=== PATIENT | female | born 1965 | race Caucasian/White ===

== ENCOUNTER 2019-08-30 06:49 | Inpatient (IN) | payer OTHER, MEDICAID ==
[~2019-08-30] VITALS: Ht 170.2 cm; Wt 72.7 kg
[2019-08-30 07:04] VITALS: Ht 170.2 cm; Wt 72.7 kg
--- NOTE | 2019-08-30 07:33 | NUR ---
PT MEDICATED WITH FENTENYL AND WILL CONTINUE TO MONITOR. TOLERATING MEDICATION AT THIS TIME
--- NOTE | 2019-08-30 07:33 | NUR ---
PT HERE FOR AICD INTERMITTENTLY SHOCKING THE PT STARTED THIS AM. UPON ARRIVAL PT HAD APPROX 10 SHOCKS AND PAIN 10/10 DURING SHOCKS. PT ARRIVES ALERT AND ORIENTED WITH VSS UPON ARRIVAL. PT HAS AFIB AN UNDERLYING RHYTHM WITH RUNS OF VT AND RUNS OF NSR. DR ARIAS PLACED MAGNET AT SIGHT AT THIS TIME
[2019-08-30 07:40] LABS: BASOPHIL % 1.2 % (0-2); PLATELET COUNT 360 x10^3mcL (130-400); RED CELL DISTRIBUTION WIDTH 13.1 % (11.5-14.5)
[2019-08-30 07:51] LABS: CALCIUM 9.1 mg/dL (8.5-10.1); CARBON DIOXIDE 24.9 mmol/L (21-32); CHLORIDE SERUM 106 mmol/L (98-107); CREATININE SERUM 0.9 mg/dL (0.6-1.0); GFR1 > 60 mL/min; GLUCOSE SERUM 116 mg/dL (74-106); POTASSIUM SERUM 3.7 mmol/L (3.5-5.1); SODIUM SERUM 142 mmol/L (136-145)
[2019-08-30 07:56] LABS: ALKALINE PHOSPHATASE 101 U/L (46-116); ALT/SGPT 22 U/L (14-59); AST/SGOT 21 U/L (15-37); BILIRUBIN TOTAL 0.2 mg/dL (0.20-1.00); TOTAL PROTEIN, SERUM 7.4 g/dL (6.4-8.2)
[2019-08-30 07:57] LABS: ALBUMIN 3.1 g/dL (3.4-5.0)
--- NOTE | 2019-08-30 08:28 | NUR ---
PT CLAIMS NO PAIN AT THIS TIME AND VSS. NO DISTRESS. WILL CONTINUE TO MONITOR
--- NOTE | 2019-08-30 08:56 | NUR ---
REPORT GIVEN TO TAM PIERCE RN
--- NOTE | 2019-08-30 09:05 | NUR ---
RECEIVED PT FROM ER WITH DIAGNOSIS OF AICD MALFUNCTION. AICD SHOCKED PT THIS AM. EDEN PTS RN AT [facility] [place], [facility] WAS TRYING TO GET PACEMAKER REPLACED. SHE THINKS 3-5 LINES ARE FRACTURED. ALLERGIES TO MORPHINE AND DILAUDID. 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 PT FELL AT 15 AND INJURED LEFT HIP. USES WHEELCHAIR. HX SCHIZO, AFIB? ALERT AND ORIENTED TO SELF,OTHERS AND PLACE. EDEN RN [phone]. PHOTO TAKEN OF SEAN ON LOWER LIP. ORIENTED TO CALL LIGHT. ON 02 2L NC.
[2019-08-30 10:14] VITALS: BP 148/65
[2019-08-30 13:41] VITALS: BP 109/65
[2019-08-30] MEDS ORDERED: MULTI-VITAMINS1 TAB PO (16:19)
[2019-08-30] MEDS ORDERED: FLUVOXAMINE MA100 MG PO (16:20)
[2019-08-30] MEDS ORDERED: DOCU LIQUI50 MG/5 ML PO (16:22)
[2019-08-30] MEDS ORDERED: GOOD SENSE ASPI81 M3 PO (16:23)
[2019-08-30] MEDS ORDERED: FLECAINIDE ACET50 MG PO (16:24)
[2019-08-30] MEDS ORDERED: CALCIUM500 M1 PO (16:24)
[2019-08-30] MEDS ORDERED: D-20001 TAB PO (16:25)
[2019-08-30] MEDS ORDERED: ZYPREXA2.5 M1 PO (16:26)
[2019-08-30] MEDS ORDERED: OXYBUTYNIN CHLOR5 MG PO (16:27)
[2019-08-30] MEDS ORDERED: MIRALAX17 GM/Dose PO (16:27)
[2019-08-30] MEDS ORDERED: TYLENOL ARTHRITIS (16:28)
[2019-08-30] MEDS ORDERED: TYLENOL ARTHRITIS PO (16:30)
[2019-08-30] MEDS ORDERED: MOM PO (16:32)
[2019-08-30 17:56] VITALS: BP 122/72
--- NOTE | 2019-08-30 18:22 | NUR ---
RE; PACEMAKER [facility] [phone].
--- NOTE | 2019-08-30 18:52 | NUR ---
RESTING COMFORTABLY. VSS, NO C/O PAIN. GOOD APPETITE WITH LUNCH AND DINNER. ORDER FOR AICD INTERROGATION. SECRETARTY FAXED REQUEST TO [facility] FOR ANY PREVIOUS INTEROGATION. [phone]. CALL LIGHT WITHIN REACH.
--- NOTE | 2019-08-30 18:58 | NUR ---
SENT REQUEST OF INFO/ INTERROGATION REPORT RE: PACEMAKER TO [facility]. PHONE [phone]
[2019-08-30 20:40] VITALS: BP 137/80
[2019-08-31 05:36] VITALS: BP 105/62
[2019-08-31 06:43] LABS: BASOPHIL % 0.6 % (0-2); PLATELET COUNT 312 x10^3mcL (130-400); RED CELL DISTRIBUTION WIDTH 13.1 % (11.5-14.5)
[2019-08-31 07:02] LABS: CALCIUM 9.2 mg/dL (8.5-10.1); CARBON DIOXIDE 28.1 mmol/L (21-32); CHLORIDE SERUM 104 mmol/L (98-107); CREATININE SERUM 0.8 mg/dL (0.6-1.0); GFR1 > 60 mL/min; GLUCOSE SERUM 72 mg/dL (74-106); POTASSIUM SERUM 3.9 mmol/L (3.5-5.1); SODIUM SERUM 140 mmol/L (136-145)
[2019-08-31 07:50] VITALS: BP 125/77
--- NOTE | 2019-08-31 07:52 | NUR ---
RECEIVED PATIENT FROM NIGHT NURSE, NO REPORT GIVEN. PATIENT WITH MENTAL DELAY, KNOWS NAME, GENREAL LOCATION, AND APPROX DATE. REPROTING THAT HER PACEMAKER SHOCKED HER ONE TIME. DAY NURSE YESTERDAY ALREADY FAXED INFO REQUEST TO [facility] FOR PACEMAKER INTEROGATION. AWAITING REPLY. PATIENT RESTING AT TIME, NO COMPLAINTS OF PAIN, TELE [address], SHOWING SINUS STACEY. AICD IN PLACE ON LEFT CHEST, REPORTS NO SHOCKS. IV IN LEFT SANDERS, FLUSHING WELL. CALL LIGHT WITHIN PLACE
--- NOTE | 2019-08-31 10:58 | NUR ---
X1 EPISODE OF VOMITING, NO RESIDUAL NAUSEA. NO FURTHER COMPLAINTS CALL LIGHT WITHIN REACH
[2019-08-31 11:41] VITALS: BP 104/77
--- NOTE | 2019-08-31 12:17 | NUR ---
PT PACEMAKER COMPANY IS [employer].
--- NOTE | 2019-08-31 12:36 | NUR ---
INTEROGATED METRONIC PACEMAKER, RECEIVED CALL FROM NASIR BARTON. STATING THAT FAULT IS IN PACEMAKER. FRACTURE IN THE SVC COIL RESULTED IN 21 UNTHERAPUTIC SHOCKS FOR PATIENT. TECH INSTRUCTED TO PLACE A MAGNET ON THE PACEMAKER TO DEACTIVATE IT AND HE WILL COME TO REPORGRAM THE AICD WITHIN THE HOUR. INFORUBY BOSCH NP AND WILL CONTACT DR MICHELLE TO INFORM. CALLED OR TO REQUEST MAGNET TO PLACE ON PATIENT CHEST
--- NOTE | 2019-08-31 14:45 | NUR ---
NASIR FROM [facility] CAME AND ASSESSED AICD, HE SPOKE WITH DR MICHELLE AND INFORMED OF ASSESSMENT. DR MICHELLE AWARE OF NEED FOR REPLACEMENT OF SVC LEAD AND BATTERY CHANGE (DUE TO 21 SHOCKS), PER DR MICHELLE INSTRUCTIONS, NASIR TURNED OFF AICD FUNCTION AND WILL CONTINUE TO MONITOR ON TELE. [employer] WOULD LIKE TO BE CALLED IF PATIENT IS SENT TO SURGERY,
[2019-08-31 16:12] VITALS: BP 118/77
--- NOTE | 2019-08-31 16:45 | NUR ---
P.T. NOTES RECEIVED P.T. EVAL ORDER; HOLD P.T. EVAL, POSSIBLE SURGERY PER CHART; WILL FF UP WHEN ABLE.
--- NOTE | 2019-08-31 17:12 | NUR ---
DR MICHELLE ROUNDED ON PATIENT. UPDATED PATIENT ON PLAN OF CARE. IWLL BE CONTACTING ELCTROPHYSIOLOGIST (EP) IF LEAD CAN BE REPLACED AT [facility] OF IF NEEDING TO BE REPLACED AT DIFFERENT HOSPITAL. PATIENT ACCEPTING OF PLAN
--- NOTE | 2019-08-31 18:47 | NUR ---
PATIENT AWAKE AND ALERT, NO COMPLAINTS. STATING SHE IS "FEELING OKAY" UNDERSTANDING OF PLAN TO REPLACE LEAD IN AICD. ATTEMPTED TO CONTACT FACILITY SUPERVISER, LEANDRO, WITH NO ANSWER AND MAILBOX FULL. PATIENT WANTED FACILITY TO BE UPDATED. WILL ATTEMPT IN AM. CALL LIGHT WITHIN REACH, WILL ENDORSE CARE TO SOLOIST DANCER
[2019-08-31 19:05] VITALS: BP 99/57
--- NOTE | 2019-08-31 19:05 | NUR ---
RECEIVED PT AWAKE ALERT TO NAME AND BIRTHDATE,SLOW TO RESPONSE D/T HX ANOXIC BRAIN INJURY BUT RESPONDS TO ALL QUESTUIONS APPROPRIATELY.DENIES CHESTPAIN AT THIS TIME.BP 99/57 MMHG,HR 70.BEDALARM ON FOR SAFETY AND ABLE TO USE CALL BUTTON NEEDED.WILL CONTINUE TO MONITOR.
--- NOTE | 2019-08-31 23:22 | NUR ---
RECEIVED A CALL FROM THE 2S CHARGE NURSE FOR A REQUEST TO TRANSFER TO [facility] FROM DR MICHELLE. [facility] RHIANNA CALLED. I SPOKE WITH PERSONAL CARE SERVICE PROVIDER MATTEO. FACE SHEET AND H&P AND CONSULT FAXED. AT THIS TIME 2300...NO BEDS WERE AVAILABLE. POSSIBLY A BED MIGHT BE AVAIL IN THE MORNING. [facility] CHARGE NURSE MADE AWARE.
--- NOTE | 2019-09-01 04:56 | NUR ---
PT SLEPT WELL.DENIES CHESTPAIN ALL NIGHT.VOMITED X1 TO LIGHT WATERY VOMITUS AFTER REPOSITIONING.GOOD ORAL CARE PROVIDED.ALL NEEDS MET.WILL CONTINUE TO MONITOR.
[2019-09-01 05:23] VITALS: BP 104/62
--- NOTE | 2019-09-01 06:04 | NUR ---
ABLE TO ESTABLISH AN IV LINE TO LFA# 22.DISCONTINUE IV TO William SANDERS.
[2019-09-01 06:25] LABS: CALCIUM 9.1 mg/dL (8.5-10.1); CARBON DIOXIDE 31.3 mmol/L (21-32); CHLORIDE SERUM 103 mmol/L (98-107); CREATININE SERUM 0.9 mg/dL (0.6-1.0); GFR1 > 60 mL/min; GLUCOSE SERUM 74 mg/dL (74-106); POTASSIUM SERUM 3.9 mmol/L (3.5-5.1); SODIUM SERUM 140 mmol/L (136-145)
--- NOTE | 2019-09-01 07:35 | NUR ---
RECEIVED HAND OFF REPORT FROM NIGHT NURSEGERRY. NO ACUTE CHANGES OVERNIGHT. X1 EPISODE OF VOMITING. NEW IV WAS STARTED TO LEFT FOREARM. PAITENT IS AWAKE AND ALERT AT THIS TIME, ORIENTED TO PERSON, PLACE, AND EVENT. STILL SLIGHTLY CONFUSED DUE TO HX. NMO COMPLAINTS FROM PATIENT. CALL LIGHT WITHIN REACH
[2019-09-01 08:06] LABS: BASOPHIL % 0.3 % (0-2); PLATELET COUNT 342 x10^3mcL (130-400)
--- NOTE | 2019-09-01 08:21 | NUR ---
SPOKE WITH [facility] WITH [facility]. UPDATED ABOUT PATIENT AND ANSWERED QUESTIONS. TRANSFERRED CALL BACK TO HOUSE SUP
[2019-09-01 09:30] VITALS: BP 101/54
--- NOTE | 2019-09-01 10:06 | NUR ---
BRENDA FROM [facility] REQUESTING FAX OF PACEMAKER INTEROGATION. FAX SENT AND RETURN CONFIRMATION IN CHART
--- NOTE | 2019-09-01 10:09 | NUR ---
ADMINSTERED MEDICATION PER MAR. PATIETN REFUSING COLACE SYRUP. EATING BREAKFAST WITHOUT ISSUE. DENIES NAUSEA, CALL LIGHT WITHIN REACH
--- NOTE | 2019-09-01 10:15 | NUR ---
CALLED AND UPDATED LEANDRO OFFICER [employer] FOR [facility]. INSTRUCTED TO CALL PATIENT'S BROTHER, LISSETH. CALLED AND LEFT MESSAGE ATTEMPTING TO UPDATE AND STATUS OF PATIENT.
--- NOTE | 2019-09-01 11:52 | NUR ---
SPOKE WITH LISSETH (BROTHER OF PATIENT) TO INFORM OF PLAN AND ACTIVLY ATTEMPTING TO FIND BED PLACEMENT. BROTHER AWARE.
[2019-09-01 13:02] VITALS: BP 110/76
--- NOTE | 2019-09-01 18:17 | NUR ---
ADMINSITERED MEDICATION PER NOV. NO COMPLAINTS FROM PATIENT NO CHEST PAIN, DR MICHELLE ROUNDED ON PAITENT. NO NEW ORDERS, CONTINUE CURRENT THERAPIES BROTHER LISSETH WAS UPDATED TODAY. NO TRANSFER OF YET. WILL ENDORSE TO [facility]
[2019-09-01 18:38] VITALS: BP 113/68
--- NOTE | 2019-09-01 19:05 | NUR ---
REPORT RECEIVED FROM DAY SHIFT RN. PATIENT WAS SEEN RESTING COMFORTABLY IN BED. NO DISTRESS NOTED. BREATHING EVEN AND UNLABORED ON ROOM AIR. NO SOB OR RESP DISTRESS NOTED. NO C/O PAIN. DENIES CHEST PAIN/PRESSURE. A/OX3. SLOW AND SLURRED SPEECH NOTED. ABLE TO MAKE NEEDS KNOWN. HAD AICD, BUT OFF AT THIS TIME PER MD ORDER. IV TO THE LFA, SALINE LOCK. PATENT AND INTACT. NO REDNESS OR SWELLING NOTED. COMFORT AND SAFETY MEASURES IN PLACE. BED IS LOCKED AND IN THE LOWEST POSITION. SIDE RAILS UP X2. CALL LIGHT IS WITHIN REACH. INSTRUCTED TO CALL FOR ASSISTANCE. WILL CONTINUE TO MONITOR.
--- NOTE | 2019-09-01 20:01 | NUR ---
1545= Sharon from [facility] [place] called & She told me that Dr. Jackson is the accepting physician & She faxed Transfer Back agreement to be sign by Manager Presentation. 1700= Spoke to Kimi, regading transfer back agreement & She advise to call Dr. Torrez if the pt. really needs to be transfer today 1800= Macie Ruiz RN called Dr. Torrez & He agreed to transfer the pt. tomorrow to [facility].
[2019-09-01 20:35] VITALS: BP 142/66
[2019-09-01 20:38] VITALS: BP 92/56
--- NOTE | 2019-09-02 01:37 | NUR ---
RESTING IN BED WITH EYES CLOSED. NO DISTRESS NOTED. BREATHING EVEN AND UNLABORED ON ROOM AIR. NO S/S OF PAIN NOTED. SAFETY MEASURES IN PLACE. CALL LIGHT IS WITHIN REACH. WILL CONTINUE TO MONITOR.
--- NOTE | 2019-09-02 03:09 | NUR ---
RESTING IN BED WITH EYES CLOSED. NO DISTRESS NOTED. BREATHING EVEN AND UNLABORED ON ROOM AIR. NO SOB NOTED. NO S/S OF PAIN NOTED. SAFETY MEASURES IN PLACE. CALL LIGHT IS WITHIN REACH. WILL CONTINUE TO MONITOR.
[2019-09-02 05:43] VITALS: BP 107/55
--- NOTE | 2019-09-02 06:22 | NUR ---
RESTED IN LONG INTERVALS THROUGHOUT THE NIGHT. NO DISTRESS NOTED. BREATHING EVEN AND UNLABORED. NO SOB. NO C/O PAIN THROUGHOUT THE NIGHT. DENIES CHEST PAIN/PRESSURE. IV TO LFA, SALINE LOCK. PATENT AND INTACT. ALL NEEDS AND CONCERNS ADDRESSED. SAFETY MEASURES IN PLACE. CALL LIGHT IS WITHIN REACH. WILL ENDORSE CARE TO DAY SHIFT RN.
[2019-09-02 06:45] LABS: BASOPHIL % 0.9 % (0-2); PLATELET COUNT 360 x10^3mcL (130-400); RED CELL DISTRIBUTION WIDTH 12.8 % (11.5-14.5)
[2019-09-02 06:51] LABS: CALCIUM 9.7 mg/dL (8.5-10.1); CHLORIDE SERUM 102 mmol/L (98-107); CREATININE SERUM 0.9 mg/dL (0.6-1.0); GFR1 > 60 mL/min; GLUCOSE SERUM 75 mg/dL (74-106); POTASSIUM SERUM 3.8 mmol/L (3.5-5.1); SODIUM SERUM 139 mmol/L (136-145)
--- NOTE | 2019-09-02 07:10 | NUR ---
RECIEVED PT RESTING IN BED WITH NO C/O PAIN, DISTRESS, OR SOB. A/O X3. TELE# 13 CONNECTED TO PT, DENIES CP OR PRESSURE. NOC REPORTS AICO IS TURNED OFF. LUNGS CTAB. LFA IV CDI/PATENT. SAFETY PRECAUTIONS IN PLACE, CALL LIGHT WITHIN REACH, WILL MONITOR.
[2019-09-02 09:24] VITALS: BP 107/69
[2019-09-02 11:36] VITALS: BP 107/69
--- NOTE | 2019-09-02 12:26 | NUR ---
PT STABLE WITH NO C/O ANY PAIN OR DISTRESS. SAFETY PRECAUTIONS IN PLACE, CALL LIGHT WITHIN REACH, WILL MONITOR.
[2019-09-02 13:54] VITALS: BP 108/78
[2019-09-02 17:46] VITALS: BP 105/63
--- NOTE | 2019-09-02 17:55 | NUR ---
RECEIVED A PHONE CALL FROM CATRACHITO (THE MOTION PICTURE SCENE BUILDER) FROM [facility]. CATRACHITO STATED THAT PT. WAS ACCEPTED TO [facility]. PT. CAN GO TO [address] [place] [address], ROOM 5[address]. # TO GIVE REPORT IS . ACCEPTING PHYSICIAN IS DR. DING. CATRACHITO CAN BE REACHED AT [phone]. THE ABOVE INFORMATION WAS RELAYED TO THE ATTENDING NURSE GILES FOREMAN (RN).
--- NOTE | 2019-09-02 18:17 | NUR ---
[place] [facility] [phone] TO GIVE REPORT ON PT AND SPOKE WITH ART, HE STATED THE CHARGE WAS BUSY AND THAT HE WOULD HAVE THE CHARGE CALL US BACK TO GET REPORT. TRANSPORT IS SCHEDULED TO [facility] PT AT [address] [facility]. ALL TRANSFER PAPERWORK IS SIGNED BY PT AND READY FOR TRANSFER. PT STABLE WITH NO C/O PAIN OR DISTRESS NOTED. A/O X3. TELE #13 CONNECTED TO PT, DENIES ANY CP OR PRESSURE. LUNGS CTAB. LFA IV CDI/PATENT. SAFETY PRECAUTIONS IN PLACE, CALL LIGHT WITHIN REACH, WILL ENDORSE CARE TO NIGHT NURSE.
--- NOTE | 2019-09-02 18:49 | NUR ---
RE[place] GIV[place] [facility] WILL ENDORSE TO NOC.
--- NOTE | 2019-09-02 19:00 | NUR ---
REPORT RECEIVED FROM DAY SHIFT RN. PATIENT WAS SEEN RESTING COMFORTABLY IN BED. NO DISTRESS NOTED. BREATHING EVEN AND UNLABORED ON ROOM AIR. NO SOB OR RESP DISTRESS NOTED. DENIES CHEST PAIN/PRESSURE. TELE#13, SR AT 71. AICD IN PLACE, BUT TURNED OFF. IV TO THE LFA. SALINE LOCK. PATENT AND INTACT. NO REDNESS OR SWELLING NOTED. PATIENT WILL BE TRANSFERRED TO [facility] TO ROOM 5226. REPORT WAS GIVEN TO CRISTHIAN BY DAY SHIFT RN. ALL TRANSPORT PAPER WORK IS READY AND SIGNED. AWAITING TRANSPORT TEAM. COMFORT AND SAFETY MEASURES IN PLACE. BED IS LOCKED AND IN THE LOWEST POSITION SIDE RAILS UP X2. CALL LIGHT IS WITHIN REACH. WILL CONTINUE TO MONITOR.
[2019-09-02 20:15] VITALS: BP 132/77
--- NOTE | 2019-09-02 20:55 | NUR ---
[facility] TRANSPORT ARRIVED TO TRANSPORT PATIENT TO [facility]; [address] [place], RM [phone]. REPORT GIVEN TO TRANSPORT TEAM. TRANPORT PACKET GIVEN. TELE #13 REMOVED. PATIENT DENIES ANY DISTRESS. DENIES CHEST PAIN/PRESSURE. NO C/O PAIN. PATIENT WAS TRANSPORTED WITH IV TO THE [facility], 22G, INTACT. SALINE LOCKED. BREATHING EVEN AND UNLABORED ON ROOM AIR. NO SOB NOTED. PATIENT LEFT WITH ALL BELONGINGS.
--- NOTE | 2019-09-02 22:03 | NUR ---
FAXED OVER MEDICARE PAPERWORK TO [facility] PER THEIR REQUEST. COMFIRMATION IN PATIENT'S CHART.
== END 2019-09-02 21:05 | disposition short-term general hospital (02) | DRG 309 ==
LOC: ED 06:49 → DU 08:17
PROVIDERS: Emergency Medicine; General Practice; Internal Medicine; ADMIT Family Medicine
DX: T82.191A Other mechanical complication of cardiac pulse generator (battery), initial encounter (principal); T75.1XXA Unspecified effects of drowning and nonfatal submersion, initial encounter; G93.1 Anoxic brain damage, not elsewhere classified; F25.9 Schizoaffective disorder, unspecified; I48.91 Unspecified atrial fibrillation; Y93.89 Activity, other specified
CPT/HCPCS: 97112-GP; G0378; J3010; Q0092